=== PATIENT | female | born 1990 | race African-American/Black ===

== ENCOUNTER 2016-08-04 15:20 | Emergency (ER) | payer SELFPAY ==
[~2016-08-04] VITALS: Ht 170.2 cm; Wt 110.0 kg
[2016-08-04 15:23] VITALS: BP 145/74; PULSE 86; TEMP 98.3
[2016-08-04] MEDS ORDERED: SODIUM CHLOR 0.9% 1000 ML INJ 1,000 ML IV SCH (16:19)
[2016-08-04 16:30] VITALS: BP 114/70; PULSE 78; RESP 16; O2SAT 97
[2016-08-04] MEDS ORDERED: LIDOCAINE VISCOUS 2% SOLN 15 ML UDC PO ONE (16:30)
[2016-08-04] MEDS ORDERED: ALUMINUM/MAGNESIUM/SIMETH 30 ML CUP PO ONE (16:30)
[2016-08-04] MEDS ORDERED: PANTOPRAZOLE SODIUM 40 MG VIAL IVP ONE (16:30)
[2016-08-04] MEDS ORDERED: FAMOTIDINE 20 MG/2 ML VIAL IV PUSH ONE (16:30)
--- NOTE | 2016-08-04 16:33 | PD ---
HPI Chief Complaint: GI Complaint Time Seen by Provider: 16:26 Travel History International Travel<30 days: No Contact w/Intl Traveler<30days: No Traveled to known affect area: No History of Present Illness HPI 25-year-old female that presents to the ED for evaluation of sensation of fluid on her throat as well as pain in her throat. Per patient she's had this for a week. Per patient he feels like her pain is in the chest but she states that he feels more like is in her esophagus. Per patient she feels it or something causing her discomfort. She denies any cough or runny nose. No fevers chills or sweats. Per patient she does have some chest discomfort but she describes it as a "flutter". When I asked her if she feels like her heart is palpitating she tells me no and she just feels like there is some fluid coming from her stomach all the way up. Per patient is burning. The patient her discomfort is 4/ 10. She denies any shortness of breath. The pain does get worse with cough and with deep breaths. She has no allergies to medication. She does have a history of smoking in the past. She denies any recent travel. No injury. Per patient she's felt to swallow but it hurts to swallow. She points to the mid but as the area of most pain. She denies any sick contacts. Denies ever having like this before. She is not taking anything for this. PFSH Past Medical History Medical History: Denies Significant Hx Diminished Hearing: No ?: Not LMP: 1 WEEK AGO : 0 Para: 0 Social History Alcohol Use: No Tobacco Use: Yes (quit x 3 weeks) Substance Use: Yes (marijuana) Allergies-Medications (Allergen,Severity, Reaction): Coded Allergies: No Known Allergies (Verified , 08/04/16) Reported Meds & Prescriptions Reported Meds & Active Scripts Active Azithromycin 250 Mg Tab 250 Mg PO DIRECTED Take 2 tabs (500 mg) on day 1 then 1 tab daily x 4 days. Protonix (Pantoprazole Sodium) 20 Mg Tab 20 Mg PO DAILY Zantac (Ranitidine HCl) 150 Mg Tab 150 Mg PO BID PRN Review of Systems General / Constitutional: No: Fever, Chills, Weight Gain, Weight Loss, Other Eyes: No: Diploplia, Blurred Vision, Photophobia, Drainage, Redness, Foreign Body Sensation, Pain, Tearing, Blind Spots, Visual changes, Blindness, Other HENT: Positive: Sore Throat, Neck Pain, Masses (??), No: Headaches, Vertigo, Lightheadedness, Rhinitis, Rhinorrhea, Congestion, Nosebleed, Neck Stiffness, Gingival Bleeding, Dental Difficulties, Ear Discharge, Earache, Other Cardiovascular: Positive: Chest Pain or Discomfort, No: Palpitations, Irregular Rhythm, Tachycardia, Diaphoresis, Syncope, Dyspnea on exertion, Varicosities, Edema, Cyanosis, Varicosities, Phlebitis, Claudication, Other Respiratory: Positive: Cough, No: Shortness of Breath, Wheezing, Sneezing, Orthopnea, Hemoptysis, Stridor, Night Sweats, Pleuritic Pain, Other Gastrointestinal: Positive: Dysphagia, No: Nausea, Vomiting, Diarrhea, Abdominal Pain, Hematemesis, Hematochezia, Constipation, Changes in Bowel Habits , Indigestion, Loss of Appetite, Other Genitourinary: No: Urgency, Frequency, Dysuria, Nocturia, Hematuria, Decreased Urinary Output, Oliguria, Hesitancy, Dribbling, Incontinence, Pelvic Pain, Flank Pain, Dyspareunia, Discharge, Dysmenorrhea, Menorrhagia, Metorrhagia, Vaginal Bleeding, Other Musculoskeletal: No: Myalgias, Arthralgias, Limited ROM, Weakness, Cramping, Edema, Pain, Atrophy, Other Skin: No Rash, No Itching, No Dryness, No Lumps, No Hives, No Change in Pigmentation, No Change in nails, No Alopecia, No Lesions, No Breast Lumps, No Breast Tenderness, No Breast Swelling, No Other Neurologic: No: Weakness, Dizziness, Syncope, Focal Abnormalities, Coordination Problem, Tremor, Ataxia, Headache, Change in Mentation, Slurred Speech, Paresthesia, Incontinence, Seizures, Sensory Disturbance, Other Psychiatric: No: Anxiety, Depression, Suicidal Ideations, Disorder of Thought, Mood Disorder, Substance Abuse, Homicidal Ideation, Other Endocrine: No: Heat Intolerance, Cold Intolerance, Polyuria, Polydipsia, Other Hematologic/Lymphatic: No: Easy Bruising, Lymph Node Enlargement, Other Physical Exam Narrative GENERAL: Well-nourished, well-developed patient in no apparent distress. SKIN: Warm and dry. HEAD: Atraumatic. Normocephalic. EYES: Pupils equal and round reactive to light and accommodation. No scleral icterus. No injection or drainage. ENT: No nasal bleeding or discharge. Mucous membranes pink and moist. TMs are clear with no sign of infection or perforation. No mastoid tenderness. Ear canals are intact bilaterally. No lymphadenopathy. Nostril mucosa is red and moist with clear mucus noted. No sinus tenderness to palpation noted. Tonsils are not enlarged or swollen. No ulvua Deviation. Tongue is midline. Patient does have some tenderness to palpation around the area of the lower neck. No obvious masses noted on the thyroid gland but some tenderness to palpation around this area. NECK: Trachea midline. No JVD. No meningeal signs noted CARDIOVASCULAR: Regular rate and rhythm. No murmurs, S3, S4. RESPIRATORY: No accessory muscle use. Clear to auscultation. Breath sounds equal bilaterally. GASTROINTESTINAL: Abdomen soft, non-tender, nondistended. Hepatic and splenic margins not palpable. MUSCULOSKELETAL: Extremities without clubbing, cyanosis, or edema. No obvious deformities. NEUROLOGICAL: Awake and alert. No obvious cranial nerve deficits. Motor grossly within normal limits. Five out of 5 muscle strength in the arms and legs. Normal speech. PSYCHIATRIC: Appropriate mood and affect; insight and judgment normal. Data Data Last Documented VS Vital Signs Date Time Temp Pulse Resp B/P Pulse Ox O2 Delivery O2 Flow Rate FiO2 08/04/16 15:23 98.3 86 145/74 Orders Complete Blood Count With Diff (08/04/16 16:19) Comprehensive Metabolic Panel (08/04/16 16:19) Iv Access Insert/Monitor (08/04/16 16:19) Pantoprazole Inj (Protonix Inj) (08/04/16 16:30) Sodium Chlor 0.9% 1000 Ml Inj (Ns 1000 M (08/04/16 16:19) Famotidine Inj (Pepcid Inj) (08/04/16 16:30) Al-Mag Hy-Si 40-40-4 Mg/Ml Liq (Mag-Al P (08/04/16 16:30) Lidocaine 2% Viscous (Xylocaine 2% Visco (08/04/16 16:30) Ed Urine Pregnancytest Poc (08/04/16 16:19) Barium Swallow (08/04/16 ) Thyroid Stimulating Hormone (08/04/16 16:19) Chest, Single Ap (08/04/16 ) Group A Rapid Strep Screen (08/04/16 16:28) Strep Culture (Group A) (08/04/16 16:30) Labs Laboratory Tests Test 08/04/16 16:30 White Blood Count 7.0 TH/MM3 Red Blood Count 4.43 MIL/MM3 Hemoglobin 12.4 GM/DL Hematocrit 37.5 % Mean Corpuscular Volume 84.6 FL Mean Corpuscular Hemoglobin 28.1 PG Mean Corpuscular Hemoglobin 33.2 % Concent Red Cell Distribution Width 13.7 % Platelet Count 111 TH/MM3 Mean Platelet Volume 9.4 FL Neutrophils (%) (Auto) 48.9 % Lymphocytes (%) (Auto) 38.8 % Monocytes (%) (Auto) 9.5 % Eosinophils (%) (Auto) 2.0 % Basophils (%) (Auto) 0.8 % Neutrophils # (Auto) 3.4 TH/MM3 Lymphocytes # (Auto) 2.7 TH/MM3 Monocytes # (Auto) 0.7 TH/MM3 Eosinophils # (Auto) 0.1 TH/MM3 Basophils # (Auto) 0.1 TH/MM3 CBC Comment DIFF FINAL Differential Comment Sodium Level 142 MEQ/L Potassium Level 4.2 MEQ/L Chloride Level 109 MEQ/L Carbon Dioxide Level 27.5 MEQ/L Anion Gap 6 MEQ/L Blood Urea Nitrogen 11 MG/DL Creatinine 0.83 MG/DL Estimat Glomerular Filtration 101 ML/MIN Rate Random Glucose 84 MG/DL Calcium Level 8.8 MG/DL Total Bilirubin 0.2 MG/DL Aspartate Amino Transf 19 U/L (AST/SGOT) Alanine Aminotransferase 29 U/L (ALT/SGPT) Alkaline Phosphatase 65 U/L Total Protein 7.1 GM/DL Albumin 3.7 GM/DL Thyroid Stimulating Hormone 1.000 uIU/ML 3rd Gen [facility] Medical Decision Making Medical Screen Exam Complete: Yes Emergency Medical Condition: Yes Medical Record Reviewed: Yes Interpretation(s) CBC & BMP Diagram 08/04/16 16:30 Last Impressions Chest X-Ray 08/04/16 0000 Signed Impressions: Service Date/Time: Thursday, August 04, 2016 17:21 - CONCLUSION: No acute disease. Hermann Cunningham MD Barium Swallow X-Ray 08/04/16 0000 Signed Impressions: Service Date/Time: Saturday, August 04, 2016 17:24 - CONCLUSION: Normal examination for a patient of this age. Hermann Cunningham MD Strep test negative, TSH negative. Differential Diagnosis Heartburn versus esophagitis versus pharyngitis versus strep throat versus chest discomfort versus pleurisy versus pneumonia versus less likely but still in the differential thyroiditis Narrative Course 25-year-old female that presents to the ED for evaluation of neck pain. Patient was properly examined and was found to have signs and symptoms consistent appears to be to me more related to heartburn. Patient does have reproducible pain around the anterior aspect of the neck. Not very specific. Tonsils themselves appear to be swollen. At this time I recommend some blood work and strep test, if strep throat negative will do barium swallow to make sure the patient does not have an obstruction causing the pain. Strep test was negative, labs were essentially unremarkable. Barium swallow was done and was negative as well as chest x-ray for any sign of acute disease. At this time I believe this is likely all related to possible heartburn. Patient will be treated for this with protonic's, Zantac. Pharyngitis could also be causing the symptoms, she will be given azithromycin to cover for any bacterial infection although to me this appears to be less likely. At this time patient was told to take OTC meds as needed. Drink plenty of fluids. Follow with PCP. See ED for any worsening symptoms. Diagnosis Primary Impression: Pharyngitis Qualified Code: J02.9 - Pharyngitis, unspecified etiology Additional Impression: GERD (gastroesophageal reflux disease) Qualified Code: K21.0 - Gastroesophageal reflux disease with esophagitis Patient Instructions: General Instructions Additional Instructions: Take medications as prescribed. Follow with PCP. See ED for any worsening symptoms. Drink plenty of fluids. Tylenol for pain as needed. Food to avoid or limit: Beer, alcohol, fried food, spicy food, sodas, coffee. Med/Other Pt SpecificInfo: Prescription(s) given Scripts Azithromycin 250 Mg [id number] Mg PO DIRECTED #6 TAB Take 2 tabs (500 mg) on day 1 then 1 tab daily x 4 days. Prov:Garfield Jackson MD 08/04/16 Pantoprazole (Protonix)20 Mg Tab20 Mg PO DAILY #30 TAB Ref 0 Prov:Garfield Jackson MD 08/04/16 Ranitidine (Zantac)150 Mg [id number] Mg PO BID PRN (PAIN SCALE 1 TO 10) #20 TAB Prov:Garfield Jackson MD 08/04/16 Disposition: 01 DISCHARGE HOME Condition: Stable Jose Jensen Aug 04, 2016 16:33 Jose Jensen Aug 04, 2016 16:33
[2016-08-04 16:49] LABS: AUTOMATED NEUTROPHIL # 3.4 TH/MM3 (1.8-7.7); BASOPHIL # 0.1 TH/MM3 (0-0.2); BASOPHIL % 0.8 % (0.0-2.0); EOSINOPHIL # 0.1 TH/MM3 (0-0.4); HEMATOCRIT 37.5 % (35.0-46.0); HEMO FLAGS DIFF FINAL; LYMPH % 38.8 % (9.0-44.0); LYMPHOCYTE # 2.7 TH/MM3 (1.0-4.8); MEAN CELL VOLUME 84.6 FL (80.0-100.0); MEAN CORPUSCULAR HEMOGLOBIN 28.1 PG (27.0-34.0); MEAN CORPUSCULAR HGB CONC 33.2 % (32.0-36.0); MONO % 9.5 % (0.0-8.0); NEUT % 48.9 % (16.0-70.0); PLATELET COUNT 111 TH/MM3 (150-450); RED BLOOD COUNT 4.43 MIL/MM3 (4.00-5.30); RED CELL DISTRIBUTION WIDTH 13.7 % (11.6-17.2)
[2016-08-04 17:17] LABS: ALT (GPT) 29 U/L (10-53); ANION GAP 6 MEQ/L (5-15); AST (GOT) 19 U/L (15-37); BICARBONATE 27.5 MEQ/L (21.0-32.0); BLOOD UREA NITROGEN 11 MG/DL (7-18); CHLORIDE 109 MEQ/L (98-107); GLOMERULAR FILTRATION RATE 101 ML/MIN (>89); POTASSIUM 4.2 MEQ/L (3.5-5.1); SODIUM (NA) 142 MEQ/L (136-145)
[2016-08-04 17:27] LABS: ALKALINE PHOSPHATASE 65 U/L (45-117); TOTAL BILIRUBIN ADULT 0.2 MG/DL (0.2-1.0)
[2016-08-04 17:30] VITALS: BP 123/83; PULSE 78; RESP 16; O2SAT 96
--- NOTE | 2016-08-04 17:41 | RADRPT ---
EXAM DATE/TIME: 08/04/2016 17:24 [facility] COMPARISON: No previous studies available for comparison. INDICATIONS : Dysphagia FLUORO TIME: .8 minutes IMAGE COUNT: 11 CONTRAST: 1. E-Z HD Barium Sulfate (98% w/w) Liquid E-Z Paque Barium Sulfate (60% w/v, 41% w.w) MEDICAL HISTORY : None. SURGICAL HISTORY : None. ENCOUNTER: Initial ACUITY: 1 day PAIN SCORE: 10/10 LOCATION: esophagus FINDINGS: Air-contrast views of the hypopharynx demonstrate a normal mucosal surface without filling defect. R apid sequence images of the hypopharynx and cervical esophagus during the passage of barium demonstra te a normal swallowing function. No evidence of aspiration. Multiphasic examination of the esophagu s demonstrates no esophageal fold thickening, ulceration, or filling defect. The gastroesophageal ju nction is normal in configuration without evidence of hiatal hernia. CONCLUSION: Normal examination for a patient of this age. Hermann Cunningham MD on August 04, 2016 at 17:37 Board Certified Radiologist. This report was verified electronically.
--- NOTE | 2016-08-04 17:43 | RADRPT ---
EXAM DATE/TIME: 08/04/2016 17:21 [facility] COMPARISON: No previous studies available for comparison. INDICATIONS : Dysphagia, Chest Pain MEDICAL HISTORY : None. SURGICAL HISTORY : None. ENCOUNTER: Initial ACUITY: 1 day PAIN SCORE: 10/10 LOCATION: Bilateral chest FINDINGS: A single view of the chest demonstrates the lungs to be symmetrically aerated without evidence of mas s, infiltrate or effusion. The cardiomediastinal contours are unremarkable. Osseous structures are intact. CONCLUSION: No acute disease. Hermann Cunningham MD on August 04, 2016 at 17:40 Board Certified Radiologist. This report was verified electronically.
[2016-08-04] MEDS ORDERED: ZANT150T2 PO (17:52)
[2016-08-04] MEDS ORDERED: PANT20 PO (17:52)
[2016-08-04] MEDS ORDERED: AZIT250T3 PO (17:52)
== END 2016-08-04 18:35 | disposition home or self-care (01) ==
LOC: NEPE 15:20
DX: J02.9 Acute pharyngitis, unspecified (principal); K21.0 Gastro-esophageal reflux disease with esophagitis; R07.89 Other chest pain; Z87.891 Personal history of nicotine dependence; R00.2 Palpitations
CPT/HCPCS: 71010; 74230; 80053; 84443; 84703; 85025; 87081; 87880; 96374; 96375; 99283; C9113; J7030

== ENCOUNTER 2016-09-13 00:31 | Emergency (ER) | payer SELFPAY ==
[~2016-09-13] VITALS: Ht 170.2 cm; Wt 107.0 kg
[~2016-09-13 00:31] MED LIST: AZIT250T3 PO; PANT20 PO; ZANT150T2 PO
[2016-09-13 00:34] VITALS: BP 112/60; PULSE 61; RESP 16; TEMP 97.9; O2SAT 98
[2016-09-13] MEDS ORDERED: SODIUM CHLOR 0.9% 1000 ML INJ 1,000 ML IV SCH (00:53)
--- NOTE | 2016-09-13 00:57 | PD ---
HPI Chief Complaint: Abdominal Pain Time Seen by Provider: 00:50 Travel History International Travel<30 days: No Contact w/Intl Traveler<30days: No Traveled to known affect area: No History of Present Illness HPI 26-year-old female brought in by a balance for evaluation of right lower quadrant abdominal pain. The patient reports that the pain started earlier this evening, described as sharp, radiates up her right abdomen, worse with movement and palpation. She has felt nauseous but has not vomited. She reports she has not had a bowel movement in several days. She denies history of abdominal surgeries. No urinary symptoms. She reports having a vaginal discharge that is [id number]. No vaginal bleeding. LMP was 08/28/16. [facility] Past Medical History Diminished Hearing: No GERD: Yes Tetanus Vaccination: > 5 Years ?: Not LMP: 08/29/2015 : 0 Para: 0 Past Surgical History Surgical History: No Previous Surgery Social History Alcohol Use: No (quit 1 month ago ) Tobacco Use: Yes (quit x 3 weeks) Substance Use: Yes (marijuana) Allergies-Medications (Allergen,Severity, Reaction): Coded Allergies: No Known Allergies (Verified , 09/13/16) Reported Meds & Prescriptions Reported Meds & Active Scripts Active Naprosyn (Naproxen) 500 Mg Tab 500 Mg PO BID 7 Days Flagyl (Metronidazole) 500 Mg Tab 500 Mg PO BID 7 Days Protonix (Pantoprazole Sodium) 20 Mg Tab 20 Mg PO DAILY Review of Systems Except as stated in HPI: all other systems reviewed are Neg Physical Exam Narrative GENERAL: Well-developed, well-nourished, overweight, no acute distress. SKIN: Focused skin assessment warm/dry. No rash. HEAD: Atraumatic. Normocephalic. EYES: Pupils equal and round. No scleral icterus. No injection or drainage. ENT: Mucous membranes pink and moist. NECK: Trachea midline. No JVD. CARDIOVASCULAR: Regular rate and rhythm. RESPIRATORY: No accessory muscle use. Clear to auscultation. Breath sounds equal bilaterally. GASTROINTESTINAL: Abdomen soft, nondistended. Moderate right lower quadrant tenderness without peritoneal signs. Rest of abdomen is mildly tender. Normal bowel sounds. No hernias. CERAMIC SPRAYER: Exam performed in the presence of female nurse. Normal external genitalia. Normal cervix. No foul-smelling vaginal discharge. No CMT. No adnexal masses or tenderness. MUSCULOSKELETAL: No obvious deformities. No clubbing. No cyanosis. No edema. NEUROLOGICAL: Awake and alert. No obvious cranial nerve deficits. Motor grossly within normal limits. Normal speech. PSYCHIATRIC: Appropriate mood and affect; insight and judgment normal. Data Data Last Documented VS Vital Signs Date Time Temp Pulse Resp B/P Pulse Ox O2 Delivery O2 Flow Rate FiO2 09/13/16 00:34 97.9 61 16 112/60 98 Orders Complete Blood Count With Diff (09/13/16 00:53) Comprehensive Metabolic Panel (09/13/16 00:53) Lipase (09/13/16 00:53) Prothrombin Time / Inr (Pt) (09/13/16:53) Act Partial Throm Time (Ptt) (09/13/16 00:53) Urinalysis - C+S If Indicated (09/13/16 00:53) Ct Abd/Pel W Iv Contrast(Rout) (09/13/16 00:53) Iv Access Insert/Monitor (09/13/16 00:53) Ecg Monitoring (09/13/16 00:53) Oximetry (09/13/16 00:53) Morphine Inj (Morphine Inj) (09/13/16 01:00) Ondansetron Inj (Zofran Inj) (09/13/16 01:00) Sodium Chlor 0.9% 1000 Ml Inj (Ns 1000 M (09/13/16 00:53) Sodium Chloride 0.9% Flush (Ns Flush) (09/13/16 01:00) Ed Urine Pregnancytest Poc (09/13/16 00:53) Gc And Chlamydia Pcr (09/13/16 00:57) Wet Prep Profile (09/13/16 00:57) Iohexol 350 Inj (Omnipaque 350 Inj) (09/13/16 01:42) Ketorolac Inj (Toradol Inj) (09/13/16 02:30) Metronidazole (Flagyl) (09/13/16 02:30) Labs Laboratory Tests Test 09/13/16 09/13/16 01:00 02:10 White Blood Count 6.7 TH/MM3 Red Blood Count 4.58 MIL/MM3 Hemoglobin 12.8 GM/DL Hematocrit 38.2 % Mean Corpuscular Volume 83.4 FL Mean Corpuscular Hemoglobin 27.9 PG Mean Corpuscular Hemoglobin 33.5 % Concent Red Cell Distribution Width 13.4 % Platelet Count 151 TH/MM3 Mean Platelet Volume 9.6 FL Neutrophils (%) (Auto) 41.2 % Lymphocytes (%) (Auto) 48.3 % Monocytes (%) (Auto) 9.2 % Eosinophils (%) (Auto) 0.7 % Basophils (%) (Auto) 0.6 % Neutrophils # (Auto) 2.8 TH/MM3 Lymphocytes # (Auto) 3.2 TH/MM3 Monocytes # (Auto) 0.6 TH/MM3 Eosinophils # (Auto) 0.0 TH/MM3 Basophils # (Auto) 0.0 TH/MM3 CBC Comment DIFF FINAL Differential Comment Prothrombin Time 11.2 SEC Prothromb Time International 1.0 RATIO Ratio Activated Partial 26.8 SEC Thromboplast Time Urine Color YELLOW Urine Turbidity CLEAR Urine pH 6.0 Urine Specific [place] 1.037 Urine Protein 30 mg/dL Urine Glucose (UA) NEG mg/dL Urine Ketones 150 mg/dL Urine Occult Blood NEG Urine Nitrite NEG Urine Bilirubin NEG Urine Urobilinogen 4.0 MG/DL Urine Leukocyte Esterase TRACE Urine WBC 3 /hpf Urine Squamous Epithelial 1 /hpf Cells Urine Bacteria RARE /hpf Urine Mucus MANY /lpf Microscopic Urinalysis Comment CULT NOT INDICATED Sodium Level 141 MEQ/L Potassium Level 3.1 MEQ/L Chloride Level 107 MEQ/L Carbon Dioxide Level 25.2 MEQ/L Anion Gap 9 MEQ/L Blood Urea Nitrogen 7 MG/DL Creatinine 0.69 MG/DL Estimat Glomerular Filtration 123 ML/MIN Rate Random Glucose 81 MG/DL Calcium Level 8.9 MG/DL Total Bilirubin 0.3 MG/DL Aspartate Amino Transf 21 U/L (AST/SGOT) Alanine Aminotransferase 27 U/L (ALT/SGPT) Alkaline Phosphatase 52 U/L Total Protein 7.3 GM/DL Albumin 3.9 GM/DL Lipase 60 U/L Clue Cells (Wet Prep) PRESENT Vaginal Trichomonas (Wet Prep) NONE SEEN Vaginal Yeast (Wet Prep) NONE SEEN MDM Medical Decision Making Medical Screen Exam Complete: Yes Emergency Medical Condition: Yes Differential Diagnosis Appendicitis, colitis, constipation, ovarian cyst, ovarian torsion, , ectopic , PID Narrative Course Vital signs show heart rate 61, blood pressure 112/60, pulse ox 98% on room air , oral temp of 97.9F. CBC is unremarkable. CMP is remarkable for potassium 3.1, otherwise unremarkable. Lipase is 60. UA is not suggestive of UTI. CT abdomen pelvis: No evidence of acute abdominal or pelvic process. No masses are identified. Wet prep is positive for clue cells. The patient will be started on Flagyl and discharged home with outpatient follow -up this week. She was also informed to follow-up with a bull gang supervisor this week. She was informed on when to return to the emergency department. She verbalizes understanding and agreement with plan. Diagnosis Primary Impression: Bacterial vaginosis Referrals: [facility] 3 days Transmitter Engineer 3 days Primary Care Physician 3 days Additional Instructions: Take antibiotic as prescribed. Follow-up with a primary care physician this week. Follow-up with a bull gang supervisor this week. Return to the emergency department for worsening symptoms or any other concerns. Scripts Naproxen (Naprosyn)500 Mg [id number] Mg PO BID 7 Days Ref 0 Prov:Silvio Peguero MD 09/13/16 Metronidazole (Flagyl)500 Mg [id number] Mg PO BID 7 Days Ref 0 Prov:Silvio Peguero MD 09/13/16 Disposition: 01 DISCHARGE HOME Condition: Stable Silvio Peguero MD September 13, 2016 00:57
[2016-09-13] MEDS ORDERED: MORPHINE SULFATE 4 MG/ML INJ IV PUSH ONE (01:00)
[2016-09-13] MEDS ORDERED: ONDANSETRON HCL 4 MG/2 ML VIAL IVP ONE (01:00)
[2016-09-13 01:18] LABS: AUTOMATED NEUTROPHIL # 2.8 TH/MM3 (1.8-7.7); BASOPHIL % 0.6 % (0.0-2.0); EOSINOPHIL % 0.7 % (0.0-4.0); HEMATOCRIT 38.2 % (35.0-46.0); HEMO FLAGS DIFF FINAL; LYMPH % 48.3 % (9.0-44.0); LYMPHOCYTE # 3.2 TH/MM3 (1.0-4.8); MEAN CELL VOLUME 83.4 FL (80.0-100.0); MEAN CORPUSCULAR HEMOGLOBIN 27.9 PG (27.0-34.0); MEAN CORPUSCULAR HGB CONC 33.5 % (32.0-36.0); MONO % 9.2 % (0.0-8.0); NEUT % 41.2 % (16.0-70.0); PLATELET COUNT 151 TH/MM3 (150-450); RED BLOOD COUNT 4.58 MIL/MM3 (4.00-5.30); RED CELL DISTRIBUTION WIDTH 13.4 % (11.6-17.2); WHITE BLOOD COUNT 6.7 TH/MM3 (4.0-11.0)
[2016-09-13 01:28] LABS: APTT (PATIENT) 26.8 SEC (24.3-30.1); PROTHROMBIN TIME - PATIENT 11.2 SEC (9.8-11.6)
[2016-09-13 01:29] LABS: BACTERIA, URINE RARE /hpf; BLOOD, URINE NEG (NEG); COMMENT (UR) CULT NOT INDICATED; CULTURE IF INDICATED CULT NOT INDICATED; GLUCOSE,URINE NEG (NEG); KETONE, URINE 150 mg/dL (NEG); MUCUS URINE MANY /lpf (OCC); NITRITE,URINE NEG (NEG); SQUAMOUS EPITHELIAL CELL URINE 1 /hpf (0-5); URINE COLOR YELLOW (YELLW/STRAW)
[2016-09-13] MEDS: SODIUM CHLORIDE 0.9% FLUSH 10 ML FLUSH IV FLUSH PRN ×2 (01:32→02:44)
[2016-09-13 01:40] LABS: ALT (GPT) 27 U/L (10-53); ANION GAP 9 MEQ/L (5-15); AST (GOT) 21 U/L (15-37); BICARBONATE 25.2 MEQ/L (21.0-32.0); BLOOD UREA NITROGEN 7 MG/DL (7-18); CHLORIDE 107 MEQ/L (98-107); GLOMERULAR FILTRATION RATE 123 ML/MIN (>89); POTASSIUM 3.1 MEQ/L (3.5-5.1); SODIUM (NA) 141 MEQ/L (136-145)
[2016-09-13 01:42] LABS: ALKALINE PHOSPHATASE 52 U/L (45-117); TOTAL BILIRUBIN ADULT 0.3 MG/DL (0.2-1.0)
[2016-09-13] MEDS ORDERED: IOHEXOL 350 MG/ML 10 ML VIAL (for RAD DIAG) IV ONE (01:42)
--- NOTE | 2016-09-13 01:53 | RADRPT ---
EXAM DATE/TIME: 09/13/2016 01:36 [facility] COMPARISON: No previous studies available for comparison. INDICATIONS : Right lower qaudrant pain. IV CONTRAST: 95 cc Omnipaque 350 (iohexol) IV ORAL CONTRAST: No oral contrast ingested. RADIATION DOSE: 15.94 CTDIvol (mGy) MEDICAL HISTORY : Gastroesophageal reflux disease. SURGICAL HISTORY : None. ENCOUNTER: Initial ACUITY: 1 day PAIN SCALE: 10/10 LOCATION: Right lower quadrant TECHNIQUE: Volumetric scanning of the abdomen and pelvis was performed. Using automated exposure control and ad justment of the mA and/or kV according to patient size, radiation dose was kept as low as reasonably achievable to obtain optimal diagnostic quality images. FINDINGS: Examination of the lung bases demonstrates no abnormality. No pleural fluid is identified. No pulmona ry nodules are present. The liver and spleen are free of focal defects. The gallbladder and pancreas demonstrate no abnormality. The adrenal glands are normal. The kidneys demonstrate no evidence of jacek id renal mass or hydronephrosis. No free fluid or abdominal masses are identified. No para-aortic kandace nopathy is seen. Examination of the pelvis demonstrates no evidence of free fluid or pelvic mass. No abnormally enlarg ed inguinal or retroperitoneal lymph nodes are present. The bladder is unremarkable. Examination of t he right lower quadrant demonstrates no abnormality. The appendix is identified and appears normal. A 2 cm left ovarian cyst is present. CONCLUSION: 1. No evidence of acute abdominal or pelvic process. No masses are identified. Herb Villarreal MD on September 13, 2016 at 1:48 Board Certified Radiologist. This report was verified electronically.
[2016-09-13] MEDS ORDERED: NAPR500 PO (02:27)
[2016-09-13] MEDS ORDERED: METR-1 PO (02:27)
[2016-09-13] MEDS ORDERED: KETOROLAC TROMETHAMINE 30 MG/ML (IVP) VIAL IV PUSH ONE (02:30)
[2016-09-13] MEDS ORDERED: metroNIDAZOLE 500 MG TAB PO ONE (02:30)
[2016-09-13 03:20] VITALS: BP 116/62; PULSE 70; RESP 14; O2SAT 98
[2016-09-13 04:01] LABS: CHLAMYDIA PCR NOT DETECTED (NOT DETECT); NEISSERIA PCR NOT DETECTED (NOT DETECT)
== END 2016-09-13 03:26 | disposition home or self-care (01) ==
LOC: NEPC 00:31
DX: N76.0 Acute vaginitis (principal); R11.0 Nausea; F12.90 Cannabis use, unspecified, uncomplicated
CPT/HCPCS: 74177; 80053; 81001; 83690; 84703; 85025; 85610; 85730; 87210; 87491; 87591; 96361; 96374; 96375; 99284; J1885; J2270; J2405; J7030; Q9967

== ENCOUNTER 2016-11-01 12:54 | Emergency (ER) | payer SELFPAY ==
[~2016-11-01] VITALS: Ht 170.2 cm; Wt 90.0 kg
[~2016-11-01 12:54] MED LIST changes: -AZIT250T3 PO; +METR-1 PO; +NAPR500 PO; -ZANT150T2 PO
[2016-11-01 13:04] VITALS: BP 143/78; PULSE 69; RESP 18; TEMP 98.6; O2SAT 98
[2016-11-01] MEDS ORDERED: GUMMY VITAMINS (14:34)
[2016-11-01] MEDS ORDERED: LACT1CAP18 (14:34)
[2016-11-01] MEDS ORDERED: PRIL10PO (14:34)
--- NOTE | 2016-11-01 14:53 | PD ---
HPI Chief Complaint: ENT Complaint Time Seen by Provider: 14:49 Travel History International Travel<30 days: No Contact w/Intl Traveler<30days: No Traveled to known affect area: No History of Present Illness HPI 26-year-old female presents to the emergency department for evaluation of sore throat and intermittent constipation been ongoing for over 4 months. She states she's been to multiple hospitals and has been given multiple different antibiotics, but states the symptoms persist. She has never followed up outpatient. The patient states that she was told that her sore throat was from GERD. She states she changed her diet is taking a reflux medication daily, but symptoms persist. Patient states she has taken Colace [id number], but still suffers with chronic constipation. She states her last bowel movement was 5 days ago. No fevers or chills. She says state that she lost her voice yesterday, started with left eye itching and states that she coughs with yellow sputum in the morning for the past 2 days. Patient appears well on exam. She states other than her reflux medication, she is not currently taking any medications. She denies . Should chest pain or shortness of breath. No abdominal pain. No nausea, vomiting, diarrhea. PFSH Past Medical History Diminished Hearing: No GERD: Yes ?: Not : 0 Para: 0 Social History Alcohol Use: No Tobacco Use: Yes Substance Use: No Allergies-Medications (Allergen,Severity, Reaction): Coded Allergies: No Known Allergies (Verified , 11/01/16) Reported Meds & Prescriptions Reported Meds & Active Scripts Active Reported [gummy vitamins] Probiotic (Lactobacillus Combo No.10) 1 Each Capsule Prilosec (Omeprazole Magnesium) 10 Mg Pow Review of Systems Except as stated in HPI: all other systems reviewed are Neg Physical Exam Narrative GENERAL: Well-nourished, well-developed female patient, ambulatory. Afebrile. SKIN: Focused skin assessment warm/dry. HEAD: Normocephalic. Atraumatic. ENT: Mucosa pink and moist. No erythema or exudates. No uvular edema. No uvular , palatal, or tonsillar deviation. Airway patent. Nasal turbinates appear normal without nasal blood, purulent drainage or septal hematoma. Bilateral tympanic membranes are clear without erythema or perforation. EYES: No scleral icterus. No injection or drainage. NECK: Supple, trachea midline. No JVD or lymphadenopathy. CARDIOVASCULAR: Regular rate and rhythm without murmurs, gallops, or rubs. RESPIRATORY: Breath sounds equal bilaterally. No accessory muscle use. Lungs sounds are clear to auscultation. GASTROINTESTINAL: Abdomen soft, non-tender, nondistended. No abdominal pain to palpation. MUSCULOSKELETAL: No cyanosis, or edema. BACK: Nontender without obvious deformity. No CVA tenderness. Data Data Last Documented VS Vital Signs Date Time Temp Pulse Resp B/P Pulse Ox O2 Delivery O2 Flow Rate FiO2 11/01/16 15:09 78 18 150/84 98 11/01/16 13:04 98.6 Room Air Orders Group A Rapid Strep Screen (11/01/16 14:40) Strep Culture (Group A) (11/01/16 14:49) MDM Medical Decision Making Medical Screen Exam Complete: Yes Emergency Medical Condition: Yes Medical Record Reviewed: Yes Differential Diagnosis Pharyngitis versus chronic constipation versus URI Narrative Course 26-year-old female presents to the emergency department for several complaints. She reports sore throat and intermittent constipation for the past 4 months. She also reports losing her voice, left eye itching, cough for 3 days. Patient appears well on exam. There is no abdominal pain to palpation. Exam is benign. Strep swab is ordered and pending. Strep is negative. Symptoms are chronic in nature. The patient instructed on the need to follow up with a division traffic superintendent for possible GERD and chronic constipation. She has not followed up outpatient for these chronic symptoms. The patient will be discharged with a prescription for magnesium citrate for her constipation. She is to follow-up with her primary care physician as well as division traffic superintendent. She is return for any acute worsening of symptoms. Patient verbalizes agreement and understanding. The patient was discharged in stable condition with instructions, including return instructions and follow up instructions. Diagnosis Primary Impression: Pharyngitis Qualified Code: J02.9 - Pharyngitis, unspecified etiology Additional Impression: Constipation Qualified Code: K59.00 - Constipation, unspecified constipation type Referrals: [facility] call for appointment Primary Care Physician call for appointment Patient Instructions: Constipation (ED), General Instructions, Pharyngitis (ED) Additional Instructions: Please follow with her primary care physician and division traffic superintendent for your chronic sore throat and chronic constipation. Take magnesium citrate as directed. High-fiber diet. Drink plenty of fluids. Follow-up with your primary care physician. Return to the emergency department for any acute worsening of symptoms. Med/Other Pt SpecificInfo: Prescription(s) given Scripts Magnesium Citrate Liq 300 Ml [id number] Ml PO ONCE #1 BOTTLE Ref 0 Prov:Shruthi Brothers 11/01/16 Disposition: 01 DISCHARGE HOME Condition: Stable Shruthi Brothers Nov 01, 2016 14:53
[2016-11-01 15:09] VITALS: BP 150/84; PULSE 78; RESP 18; O2SAT 98
[2016-11-01] MEDS ORDERED: MAGNSOL2 PO (16:07)
== END 2016-11-01 16:24 | disposition home or self-care (01) ==
LOC: NEPD 12:54
DX: J02.9 Acute pharyngitis, unspecified (principal); K59.00 Constipation, unspecified; Z72.0 Tobacco use
CPT/HCPCS: 87081; 87880; 99283

== ENCOUNTER 2016-11-07 11:02 | Emergency (ER) | payer OTHER ==
[~2016-11-07] VITALS: Ht 172.7 cm; Wt 80.0 kg
[~2016-11-07 11:02] MED LIST changes: +GUMMY VITAMINS; +LACT1CAP18; +MAGNSOL2 PO; -METR-1 PO; -NAPR500 PO; -PANT20 PO; +PRIL10PO
[2016-11-07 11:06] VITALS: BP 115/65; PULSE 62; RESP 20; TEMP 98.4; O2SAT 99
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
[2016-11-07 11:14] VITALS: BP 121/58; PULSE 60; RESP 12; TEMP 98; O2SAT 99
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
[2016-11-07] MEDS ORDERED: NAPROXEN 500 MG TAB PO ONE (11:30)
== END 2016-11-07 11:52 | disposition home or self-care (01) ==
LOC: NEPD 11:02
DX: M54.2 Cervicalgia (principal); V49.59XA Passenger injured in collision with other motor vehicles in traffic accident, initial encounter; V47.6XXA Car passenger injured in collision with fixed or stationary object in traffic accident, initial encounter; Y92.410 Unspecified street and highway as the place of occurrence of the external cause
CPT/HCPCS: 99283

== ENCOUNTER 2017-01-26 15:28 | Emergency (ER) | payer SELFPAY ==
[2017-01-26 15:30] VITALS: BP 127/76; PULSE 91; RESP 16; TEMP 98.4; O2SAT 98
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
== END 2017-01-26 16:54 | disposition left against medical advice (07) ==
LOC: NEPD 15:28
DX: K21.9 Gastro-esophageal reflux disease without esophagitis (principal)
CPT/HCPCS: 99281